=== PATIENT | male | born 1950 | race Caucasian/White ===

== ENCOUNTER 2016-04-30 16:06 | Emergency (ER) | payer MEDICARE ==
[2016-04-30 16:09] VITALS: BP 204/95; PULSE 79; O2SAT 99
--- NOTE | 2016-04-30 16:24 | ED.REPORT ---
HPI-Dyspnea / Wheezing Date of Service Apr 30, 2016 ED Provider: lE Gaitan MD A 65 year old male with a history of hypertension, myasthenia gravis, and white coat syndrome presents to the ED from his PCP with hypertension (200/90) just prior to arrival. The patient also reports mild ECG changes indicating ventricular stress per his PCP. However, today he feels "totally normal" other than baseline shortness of breath and a brief episode of chest pain en route. He was being seen by his PCP today for bilateral leg edema and recent weight gain. His systolic BP is normally 140-150 and the patient takes chlorthalidone ( 75mg) , lisinopril (20mg), and Terazosin (5mg) regularly. He also takes prednisone (5mg). The patient is distrustful of physicians and reports his BP is often markedly elevated at a docotor's office. Nursing Notes Stated Complaint: HIGH BLOOD PRESSURE, SHORT OF BREATH Chief Complaint: Respiratory Complaints Nursing Notes Reviewed: Yes Allergies: Coded Allergies: NSAIDS (Non-Steroidal Anti-Inflamma (Verified Allergy, Intermediate, ) Sulfa (Sulfonamide Antibiotics) (Verified Allergy, Intermediate, 04/30/16) General Time Seen by MD: 16:23 Chief Complaint Other (Hypertension) Hx Obtained From: Patient Arrived By: Walk-in Sudden in Onset?: No Onset Occurred: Just prior to arrival Symptom Duration: Since onset Location: : Chest left: Chest right Quality: Painful Severity: Current: No pain currently Severity: Maximum: Mild Associated with: Reports: Chest pain, Leg swelling, Denies: Fever Pertinent Negative: Relieved by nothing Recent Healthcare: Recent doctor visit Similar Sx Previous: Yes Past Medical History CURRENT MEDICATION ON 04/30/2016: Omeprazole 10mg Terazosin 5mg Chlorthalidone 75mg Lisinopril 20mg Probenecid-colchicine 45mg-4hrs Pyridostigmine bromide Prednisone - 5mg Past Medical History Myasthenia gravis Hypertension White coat syndrome Hernia Past Surgical History Hernia repair Smoking History Unknown if Ever Smoker Social History Other Social History: Good social support, Ambulatory Status Independent Review of Systems Review of Systems Note: + Hypertension (200/90), mild ECG changes per PCP Constitutional: Denies: Fever Respiratory: Reports: Shortness of breath (Baseline) Cardiovascular: Reports: Chest pain, Palpitations Musculoskeletal: Reports: Extremity swelling (Bilateral legs) Complete sys rev & neg: except as marked. Endocrine: Reports: Weight gain Physical Exam Physical Exam Notes: edema scar Initial Vital Signs Vital Signs (First) Date Time Temp Pulse Resp B/P Pulse Ox O2 Delivery O2 Flow Rate FiO2 04/30/16 16:09 36.6 79 204/95 99 Room Air 04/30/16 16:25 14 Initial VS: Reviewed Head / Eyes: Atraumatic, Normocephalic Skin: Warm, Dry Neurologic: Alert, Oriented, Nonfocal Psychiatric: Mood/affect normal, Behavior normal, Normal thought content General/Constitutional: Awake, Alert Neck: Atraumatic Neck Vascular: Positive: JVD mild Respiratory / Chest: Breath sounds NL, Breath sounds = bilat, No respiratory distress Surgical scar on abdomen Cardiovascular: Heart rate NL, Regular rhythm, Heart sounds NL, No gallop, No murmurs, No rubs Lower Ext Edema: Positive: Pitting (Mild bilaterally) ENT: Airway patent Mouth: Positive: Mucous membranes dry Abdomen: BS normoactive Interpretation & Diagnostics Lab Results Interpretation Result Diagram: 04/30/16 1719 04/30/16 1719 Test 04/30/16 17:19 04/30/16 18:25 White Blood Count 8.0th/mm3 (3.8-10.1) Red Blood Count 3.94mil/mm3 (4.40-5.80) Hemoglobin 12.1g/dL (13.8-17.2) Hematocrit 35.0% (41.0-50.0) Mean Corpuscular Volume 88.8fL (81-100) Mean Corpuscular Hemoglobin 30.7pg (27.0-35.0) Mean Corpuscular Hemoglobin Concent 34.6% (32.0-37.0) Red Cell Distribution Width 12.9% (12.3-15.4) Platelet Count 179bil/L (150-400) Neutrophils (%) (Auto) 77.7% (40-74) Lymphocytes (%) (Auto) 11.9% (14-46) Monocytes (%) (Auto) 7.7% (4-12) Eosinophils (%) (Auto) 0.7% (0-5) Basophils (%) (Auto) 0% (0-3) Sodium Level 143mEq/L (134-144) Potassium Level 3.2mEq/L (3.5-5.2) Chloride Level 101mEq/L (97-108) Carbon Dioxide Level 26mmol/L (18-29) Blood Urea Nitrogen 17mg/dL (8-27) Creatinine 1.22mg/dL (0.76-1.27) Estimat Glomerular Filtration Rate 64mL/min (>59) Glucose Level 118mg/dL (60-99) Calcium Level 8.4mg/dL (8.5-10.1) Magnesium Level 1.4mg/dL (1.6-2.6) Total Bilirubin 0.6mg/dL (0.0-1.2) Aspartate Amino Transf (AST/SGOT) 23U/L (0-50) Alanine Aminotransferase (ALT/SGPT) 26U/L (0-44) Alkaline Phosphatase 61U/L (25-160) Troponin T < 0.010ug/L (0.0-0.011) Pro-B-Type Natriuretic Peptide 183.3pg/mL (0-210) Total Protein 6.6g/dL (6.4-8.4) Albumin 3.7g/dL (3.4-5.0) Hold Anderson Top Tube Received (Received) Hold Urine Received (Received) ECG Interpretation ECG Interpretation: Sinus rhythm rate 74 Left ventricular hypertrophy Time: 16:46 Interpreted by: ED physician X-Ray Chest Interpretation Chest Xray Interpretation: IMPRESSION: No acute cardiopulmonary disease. Dictated by: Jamaal Mac M.D. on 04/30/2016 at 17:38 View: Portable, 1 view Interpretation / Wet Read by: Interpret - Radiologist Re-Eval/Medical Decision Source of Hx: Old records Re-Evaluation/Progress : Time of Eval: 18:54 Patient Status: Condition improved Re-Evaluation/Progress Note: Discussed with patient x-ray and lab results, diagnosis, and plan for discharge. Follow-up and return to the ER instructions given. Patient agrees with plan for care and all questions were addressed. Counseled Regarding: Diagnosis, Lab results, Need for follow-up, When/why to return to ED Discharge & Departure Impression: Primary Impression: Hypertension Hypertension type: essential hypertension Hypertension goal: unspecified goal Qualified Code: I10 - Essential (primary) hypertension Additional Impression: Acute hypokalemia Disposition: Home Discharge Condition All VS Reviewed: Yes Condition: Stable Additional Instructions: In the ED today we evaluated high blood pressure. ECG and chest x-ray as well as labs are reassuring. Blood pressure came down to acceptable levels without medications. 158/77 prior to discharge. Potassium is low today, we gave a dose and advised to re-start home supplement. Mag is slightly low, re-s tart home supplement. Continue other home meds and follow up with primary care soon. Return to ED for increasing shortness of breath or chest pain. Referrals: Neno Bhakta DO (PCP) Josefaibe Attestation Portions of this note were transcribed by Katiana Trujillo. I, Dr. Gaitan, personally performed the history, physical exam, and medical decision-making; I reviewed and confirmed the accuracy of the information in the transcribed note. Signed by: Memo Oglesby, 04/30/2016, 19:50 copies to: Neno Bhakta Donald L MD Apr 30, 2016 16:24 KATIANA TRUJILLO Apr 30, 2016 17:10
[2016-04-30 16:25] VITALS: BP 178/77; PULSE 75; RESP 14; O2SAT 99
[2016-04-30 17:13] VITALS: BP 177/72; PULSE 76; RESP 14; O2SAT 99
[2016-04-30 17:29] LABS: BASOPHILS % (AUTO) 0 % (0-3); EOSINOPHILS % (AUTO) 0.7 % (0-5); MONOCYTES % (AUTO) 7.7 % (4-12); Mean Corpuscular Hemoglobin 30.7 pg (27.0-35.0); Mean Corpuscular Volume 88.8 fL (81-100); NEUTROPHILS % (AUTO) 77.7 % (40-74); Platelet Count 179 bil/L (150-400)
--- NOTE | 2016-04-30 17:41 | DRSVH ---
PROCEDURE: X-RAY CHEST ONE VIEW, PORTABLE ([id number]) INDICATIONS: hypertension/dyspnea TECHNIQUE: One view of the chest was acquired. COMPARISON: [facility], CT, CT CHEST W CON, 01/23/2015, 10:06. FINDINGS: Surgical changes and devices: None. Lungs and pleura: No pleural effusions or pneumothorax. Lungs are clear. Mediastinum: Mediastinal contours appear normal. Heart size is normal. Bones and chest wall: No suspicious bony lesions. Overlying soft tissues appear unremarkable. IMPRESSION: No acute cardiopulmonary disease. Dictated by: Jamaal Mac M.D. on 04/30/2016 at 17:38 Approved by: Jamaal Mac M.D. on 04/30/2016 at 17:39
[2016-04-30 17:49] LABS: Magnesium 1.4 mg/dL (1.6-2.6)
[2016-04-30 17:51] LABS: TROPONIN T < 0.010 ug/L (0.0-0.011)
[2016-04-30 18:20] VITALS: BP 158/77; PULSE 68; RESP 16; O2SAT 99
[2016-04-30] MEDS ORDERED: Potassium Chloride 20 mEq/15 mL 15mL Oral Soln PO ONE (19:00)
[2016-04-30 19:10] VITALS: BP 158/77; PULSE 68; RESP 16; O2SAT 99
== END 2016-04-30 19:11 | disposition home or self-care (01) ==
LOC: SED 16:06
DX: I10 Essential (primary) hypertension (principal); E87.6 Hypokalemia; R06.02 Shortness of breath; R07.9 Chest pain, unspecified; G70.00 Myasthenia gravis without (acute) exacerbation; Z88.6 Allergy status to analgesic agent; Z88.2 Allergy status to sulfonamides
CPT/HCPCS: 36415; 71010; 80053; 83735; 83880; 84484; 85025; 93005; 99285; G0463

== ENCOUNTER 2016-10-29 12:02 | Emergency (ER) | payer MEDICARE ==
[~2016-10-29] VITALS: Ht 182.9 cm; Wt 122.7 kg
[2016-10-29 12:05] VITALS: BP 187/80; PULSE 88; RESP 21; O2SAT 99
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
[2016-10-29 12:48] LABS: BASOPHILS % (AUTO) 0 % (0-3); EOSINOPHILS % (AUTO) 1.2 % (0-5); MONOCYTES % (AUTO) 7.3 % (4-12); Mean Corpuscular Hemoglobin 28.8 pg (27.0-35.0); Mean Corpuscular Volume 83.5 fL (81-100); NEUTROPHILS % (AUTO) 74.9 % (40-74); Platelet Count 149 bil/L (150-400)
[2016-10-29 13:24] LABS: TROPONIN T < 0.010 ug/L (0.0-0.011)
[2016-10-29 13:34] LABS: Magnesium 1.4 mg/dL (1.6-2.6)
[2016-10-29] MEDS ORDERED: Potassium Chloride 20 mEq/15 mL 15mL Oral Soln PO ONE (14:10)
[2016-10-29] MEDS ORDERED: POTA10TA12 PO (14:18)
[2016-10-29 14:26] VITALS: BP 162/79; PULSE 65; O2SAT 99
[2016-10-29 14:31] VITALS: BP 162/79; PULSE 65; RESP 21; O2SAT 99
== END 2016-10-29 14:31 | disposition home or self-care (01) ==
LOC: SED 12:02
DX: I49.3 Ventricular premature depolarization (principal); E87.6 Hypokalemia; E83.42 Hypomagnesemia; I10 Essential (primary) hypertension; Z88.2 Allergy status to sulfonamides; Z88.6 Allergy status to analgesic agent; Z91.018 Allergy to other foods